=== PATIENT | male | born 1955 | race American Indian/Alaskan Native ===

== ENCOUNTER 2016-10-28 05:51 | Day surgery (SDC) | payer BC ==
[2016-10-28] MEDS ORDERED: NACL 0.9% 500 ML 500 ML IV SCH (07:00)
[2016-10-28 07:12] LABS: Mean Corpuscular HGB Conc 31 % (32-34); Mean Corpuscular Volume 74 fl (84-94); Platelet Count 150 K/mm3 (140-440); Red Blood Count 6.37 M/mm3 (3.65-5.03); Red Cell Distribution Width 14.9 % (13.2-15.2)
[2016-10-28 07:16] LABS: Hematocrit 46.9 % (35.5-45.6); Hemoglobin 14.5 gm/dl (11.8-15.2); Mean Corpuscular Hemoglobin 23 pg (28-32)
[2016-10-28 07:26] LABS: INR 0.99 (0.87-1.13)
[2016-10-28 07:30] LABS: Anion Gap 15 mmol/L; Blood Urea Nitrogen 18 mg/dL (9-20); Calcium 9.4 mg/dL (8.4-10.2); Carbon Dioxide 28 mmol/L (22-30); Chloride 99.9 mmol/L (98-107); Glucose 120 mg/dL (75-100); Potassium 4.2 mmol/L (3.6-5.0); Sodium 139 mmol/L (137-145)
[2016-10-28] MEDS: VERSED ONE ×2 (09:37→09:55)
[2016-10-28] MEDS: SUBLIMAZE ONE ×2 (09:37→09:55)
[2016-10-28] MEDS: CALAN ONE ×2 (09:38→10:00)
[2016-10-28] MEDS: NITROGLYCERIN SYRINGE 3 ML ONE ×2 (09:39→10:00)
[2016-10-28] MEDS: HEPARIN 10,000 UNITS/10 ML ONE ×2 (09:39→10:00)
[2016-10-28] MEDS: HEPARIN/NS 5000 UNIT/500ML(CATH LAB) 1,000 ML IR ONE ×2 (09:40→10:00)
[2016-10-28 09:54] LABS: Basophils % (Manual) 0 % (0.0-1.8); Blastocytes % (Manual) 0 %; Diff Status Complete; Hypochromasia 1+; Platelet Estimate Appears Decreased
[2016-10-28] MEDS: XYLOCAINE 2% INFILTRATI ONE ×2 (09:58→10:01)
--- NOTE | 2016-10-28 10:37 | Discharge Summary ---
Short Stay Discharge Plan Activity: advance as tolerated Weight Bearing Status: Full Weight Bearing Diet: low fat, low cholesterol, low salt Wound: keep clean and dry Special Instructions: no heavy lifting (3 days) Additional Instructions: As outpatient recommend switching Amlo/Valsartan to Valsartan alone (while on therapy with nifedipine). Follow up with: CELESTINE AKERS MD [Primary Care Provider] - 7 Days BELÉN GEORGES MD [Staff Physician] - 7 Days
[2016-10-28] MEDS ORDERED: NACL 0.9% 1000 ML 1,000 ML IV SCH (11:00)
--- NOTE | 2016-10-28 11:53 | Cardiac Catherization Report ---
CARDIAC CATHETERIZATION REPORT REASON FOR PROCEDURE: Dilated cardiomyopathy, abnormal thallium stress test. PROCEDURE: The patient was prepped and draped in a sterile fashion after informed consent. The right radial cath site was prepped and draped after a negative Royce's test. The right radial artery was entered using the Seldinger technique followed by placement of a 6-[place] hydrophilic sheath. A #3.5 left Misael catheter was used for left coronary angiography. A #4 right Misael was used for right coronary angiography. A pigtail catheter was used for left ventricle angiography. The catheters were removed, sheaths removed, and hemostasis achieved using manual compression. The patient was returned to the postprocedure unit in stable condition. There were no complications. FINDINGS: HEMODYNAMICS: Left ventricle end diastolic pressure was 26, following coronary angiography. Ascending aortic pressure was 160/93. There was no significant pressure gradient on pullback across the aortic valve. CORONARY ANGIOGRAPHY: There was [id number], diffuse ectasia of both left and right coronary arteries. The left main coronary artery was free of significant disease. The left anterior descending artery contained a 20-30% stenosis of its proximal to mid segment, otherwise this vessel and these diagonal branches contained diffuse mild atherosclerosis. The circumflex artery and its obtuse marginal branches contained diffuse mild atherosclerosis. The right coronary artery was dominant, and similarly contained diffuse mild atherosclerosis. There were no significant obstructive lesions in either left or right coronary arteries. The left ventricle was severely dilated. There was severe left ventricular systolic dysfunction with diffuse hypokinesis. Left ventricular ejection fraction estimated at 20%. CONCLUSION: 1. Mild irregularities as above, no significant obstructive coronary disease. 2. Dilated, nonischemic cardiomyopathy with severe left ventricular systolic dysfunction, ejection fraction 20%. RECOMMENDATIONS: 1. Risk factor modification. 2. Medical therapy for nonischemic cardiomyopathy. JOB# [id number] CA/NTS
[2016-10-28 13:18] VITALS: BP 130/71
== END 2016-10-28 13:40 | disposition home or self-care (01) ==
LOC: OPU 05:51
PROVIDERS: ATTEND Internal Medicine Cardiovascular Disease
DX: I25.10 Atherosclerotic heart disease of native coronary artery without angina pectoris (principal); I10 Essential (primary) hypertension; Z79.899 Other long term (current) drug therapy; Z79.82 Long term (current) use of aspirin; Z72.89 Other problems related to lifestyle; Z82.49 Family history of ischemic heart disease and other diseases of the circulatory system; Z83.3 Family history of diabetes mellitus
CPT/HCPCS: 36415; 80048; 85007; 85025; 85610; 85730; 93005; 93010; 93458; C1894; J1644; J2250; J3010; J7040; Q9967